=== PATIENT | male | born 1975 | race Caucasian/White ===

== ENCOUNTER 2017-07-14 17:18 | Emergency (ER) | payer BC, SELFPAY ==
[2017-07-14 17:55] VITALS: BP 125/87; PULSE 76; RESP 20; TEMP 36.9; O2SAT 99; BMI 29.7
[2017-07-14 18:07] LABS: UTC Influenza A Antigen Negative (Negative); UTC Influenza B Antigen Positive (Negative)
--- NOTE | 2017-07-14 18:25 | HMH.EDUTC ---
[facility] [place] Disposition Clinical Impression: Influenza Disposition: Home, Self-Care Condition on Discharge: Good Instructions: Influenza, Cough Additional Instructions: ? Start Tamiflu today if you are going to take it. Discussed risk and possible benefits. ? Lots of rest ? Increase Fluids water, Gatorade, powerade, pedialyte,if /toddler/child ? Alternate Tylenol and / or ibuprofen as discussed for fever, aches, chills x 24 hours without medication for symptoms ? Follow up IMMEDIATELY for new or worsening Symptoms OR no noticeable improvement over the next 48-72 hours, 911 for difficulty or breathing ? You or your child area contagious until no fever, aches, chills for 24 hours with medication for symptoms Prescriptions: Brompheniramine/Pseudoephed/Dm [Bromfed DM Cough Syrup 5mL] 10 ml PO Q4H PRN #250 syrup PRN Reason: Cough Oseltamivir Phosphate [Tamiflu 75mg Capsule] 75 mg PO BID #10 cap Time of Disposition: 18:29 Medical Decision Making Vital Signs: 07/14/17 17:55 Temperature 98.4 F Temperature Source Temporal Artery Scan Pulse Rate [Brachial] 76 Respiratory Rate 20 Blood Pressure [Left Arm] 125/87 Blood Pressure Mean [Left Arm] 99 Blood Pressure Source [Left Arm] Automatic Cuff Blood Pressure Position [Left Arm] Sitting 02 Sat by Pulse Oximetry 99 Oxygen Delivery Method Room Air - Lab Data Lab Results 07/14/17 18:07: Influenza Type A Ag Negative, Influenza Type B Ag Positive A - Eric Inquiry Pt receiving controlled substance: No Eric was queried for this patient: No [facility] [place] HPI - General Stated complaint: Cough, congestion, dizzy Mode of Arrival: Ambulatory Source of Information: Patient Limitations: No Limitations Description of Symptoms (Recalled from Triage Doc. 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 not sure if he may have it or not - Related Data Previous Rx's Medication Instructions Recorded Brompheniramine/Pseudoephed/Dm 10 ml PO Q4H PRN #250 syrup 07/14/17 [Bromfed DM Cough Syrup 5mL] Oseltamivir Phosphate [Tamiflu 75 mg PO BID #10 cap 07/14/17 75mg Capsule] Allergies Allergy/AdvReac Type Severity Reaction Status Date / Time No Known Allergies Allergy Verified 07/14/17 17:53 - Worker's Comp Is this a Worker's Comp case?: No [facility] History I have reviewed the patient's past medical history: Yes - *Social History Alcohol Intake: never - Psychiatric History Expresses thoughts of harming self/others: None Suicide Plan Description: No Plan ROS Obtained: Yes All systems reviewed & no additional complaints - Constitutional Constitutional: Reports body ache, Reports chills, Reports fatigue, Reports fever(s) - Respiratory Respiratory: Yes cough Physical Exam - General General appearance: alert, in no apparent distress - ENT ENT exam: Present: normal exam, normal oropharynx, mucous membranes moist, TM's normal bilaterally, normal external ear exam - Respiratory Respiratory exam: Present: normal lung sounds bilaterally. Absent: respiratory distress - Cardiovascular Cardiovascular exam: Present: regular rate, normal rhythm. Absent: JVD - Neurological Exam Neurological exam: Present: alert, oriented X3
--- NOTE | 2017-07-14 18:29 | ED_ITS ---
[facility] [place] Clinical Impression: Influenza Disposition: Home, Self-Care Condition on Discharge: Good Instructions: Influenza, Cough Additional Instructions: ? Start Tamiflu today if you are going to take it. Discussed risk and possible benefits. ? Lots of rest ? Increase Fluids water, Gatorade, powerade, pedialyte,if /toddler/child ? Alternate Tylenol and / or ibuprofen as discussed for fever, aches, chills x 24 hours without medication for symptoms ? Follow up IMMEDIATELY for new or worsening Symptoms OR no noticeable improvement over the next 48-72 hours, 911 for difficulty or breathing ? You or your child area contagious until no fever, aches, chills for 24 hours with medication for symptoms Prescriptions: Brompheniramine/Pseudoephed/Dm [Bromfed DM Cough Syrup 5mL] 10 ml PO Q4H PRN # 250 syrup PRN Reason: Cough Oseltamivir Phosphate [Tamiflu 75mg Capsule] 75 mg PO BID #10 cap Time of Disposition: 18:29 Medical Decision Making Vital Signs: 07/14/17 17:55 Temperature 98.4 F Temperature Source Temporal Artery Scan Pulse Rate [Brachial] 76 Respiratory Rate 20 Blood Pressure [Left Arm] 125/87 Blood Pressure Mean [Left Arm] 99 Blood Pressure Source [Left Arm] Automatic Cuff Blood Pressure Position [Left Arm] Sitting 02 Sat by Pulse Oximetry 99 Oxygen Delivery Method Room Air - Lab Data Lab Results 07/14/17 18:07: Influenza Type A Ag Negative, Influenza Type B Ag Positive A - Eric Inquiry Pt receiving controlled substance: No Eric was queried for this patient: No [facility] [place] - General Stated complaint: Cough, congestion, dizzy Mode of Arrival: Ambulatory Source of Information: Patient Limitations: No Limitations Description of Symptoms (Recalled from Triage Doc. 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 not sure if he may have it or not - Related Data Previous Rx's Medication Instructions Recorded Brompheniramine/Pseudoephed/Dm 10 ml PO Q4H PRN #250 syrup 07/14/17 [Bromfed DM Cough Syrup 5mL] Oseltamivir Phosphate [Tamiflu 75 mg PO BID #10 cap 07/14/17 75mg Capsule] Allergies Allergy/AdvReac Type Severity Reaction Status Date / Time No Known Allergies Allergy Verified 07/14/17 17:53 - Worker's Comp Is this a Worker's Comp case?: No [facility] History I have reviewed the patient's past medical history: Yes - *Social History Alcohol Intake: never - Psychiatric History Expresses thoughts of harming self/others: None Suicide Plan Description: No Plan ROS Obtained: Yes All systems reviewed & no additional complaints - Constitutional Constitutional: Reports body ache, Reports chills, Reports fatigue, Reports fever(s) - Respiratory Respiratory: Yes cough Physical Exam - General General appearance: alert, in no apparent distress - ENT
== END 2017-07-14 18:39 | disposition home or self-care (01) ==
PROVIDERS: Emergency Provider Nurse Practitioner; Family Provider Family Medicine
DX: J11.1 Influenza due to unidentified influenza virus with other respiratory manifestations (principal)
CPT/HCPCS: 87804; 99202

== ENCOUNTER 2021-09-14 11:53 | Emergency (ER) | payer BC, SELFPAY ==
[2021-09-14 13:53] VITALS: BP 0/0; PULSE 0; RESP 0; TEMP -17.7; TEMP 0
== END 2021-09-14 13:54 | disposition left against medical advice (07) ==
LOC: UTC 11:55
PROVIDERS: Emergency Provider Nurse Practitioner Family; PCP Family Medicine
DX: Z53.21 Procedure and treatment not carried out due to patient leaving prior to being seen by health care provider (principal)

== ENCOUNTER → 2021-09-29 08:51 | Outpatient (POV) | payer BC, SELFPAY | PROVIDERS: Visit Provider Dermatology | DX: Z00.00 Encounter for general adult medical examination without abnormal findings (principal) ==

== ENCOUNTER → 2021-11-23 11:40 | Outpatient (CLI) | payer BC, SELFPAY ==
--- NOTE | 2021-11-23 11:50 | XR_ITS ---
FINAL REPORT CLINICAL HISTORY: injury to right index finger FINDINGS: AP, oblique and lateral views of the right index finger were obtained. There is no prior exam for comparison. There is an intra-articular fracture at the ulnar side of the base of the distal phalanx of the right 2nd finger which is minimally displaced. Note is made of soft tissue edema. IMPRESSION: Minimally displaced, intra-articular fracture as detailed above. Reviewed, Interpreted and Dictated by Halle Ball MD Transcribed by Maia Giles Authenticated by Halle Ball MD on 11/24/2021 11:48:56 AM [facility]
== END ==
PROVIDERS: PCP Family Medicine; Visit Provider Nurse Practitioner Family
DX: S69.91XA Unspecified injury of right wrist, hand and finger(s), initial encounter (principal)
CPT/HCPCS: 73140

== ENCOUNTER 2022-06-25 12:29 | Emergency (ER) | payer BC, SELFPAY ==
[2022-06-25 12:35] VITALS: BP 140/88; PULSE 66; RESP 20; TEMP 36.8; O2SAT 97; BMI 31.8
--- NOTE | 2022-06-25 12:59 | EXP.UTC ---
Discharge Plan Disposition Patient Disposition: Home, Self-Care Condition: Good Prescriptions Prescriptions: New methylprednisolone [Medrol (Fer)] 4 mg tablets,dose pack See Rx Instructions .Route .COMPLEX 6 Days Qty: 21 0RF Rx Instructions: taper pack; guaifenesin [Mucinex] 600 mg tablet extended release 12hr 600 mg PO BID PRN (Reason: cough) Qty: 20 0RF azithromycin [Zithromax Z-Fer] 250 mg tablet See Rx Instructions .ROUTE .COMPLEX 5 Days Qty: 6 0RF Rx Instructions: For 250 mg dose pack: take 500 mg today (day 1), then 250 mg for 4 days (days 2-5) Referrals Follow up/Referrals: Smita Lam APRN [Primary Care Provider] - See instructions Activity Restrictions/Add. Instructions Additional Instructions/Restrictions: *Monitor Temp, Over the counter Motrin or Tylenol as directed/as needed Tylenol every 4 hours and Motrin every 6 hours (as long as your family doctor has told you that you can take it) for fever or pain. and straight to ER if unable to lower temp less than 101.0 after medication given *Warm salt water gargles may help to soothe the throat *Throat Lozenges? *Warm fluids like tea with honey may help to soothe the throat? *Sleep elevated *Humidifier/Vaporizer *Flonase 2 sprays in each nostril daily but be aware that it may take 2-3 days before you notice improvement *Bromfed may cause drowsiness. Know how it effects you (your child) before driving, caring for small child, or sending your child to school. Not other antihistamines/allergy medications while taking bromfed Your throat swab was sent for culture. Those results are typically sent to your primary care. Be sure to follow up in 2-3 days with your family doctor/primary care physician if no improvement so they can review those result and treat if necessary. If you don?t have a primary care doctor, I recommend you get one but in the mean time, you will have to return to a walk in clinic Follow up IMMEDIATELY for new or worsening symptoms or no Noticeable improvement over the next 48-72 hours. 911 for difficulty breathing or swallowing Clinical Impressions Clinical Impression: Sinusitis, Bronchitis Instructions Patient Instructions: DI for Sinusitis, Sinusitis, Acute Bronchitis Discharge ED Provider: Rupa Sanchez [facility] [place] HPI General Stated complaint: congestion, sinus pressure, soa Mode of Arrival: Ambulatory Source of Information: Patient Limitations: No Limitations Time Seen by Provider: 06/25/22 12:59 Description of Symptoms (Recalled from Triage Doc. by RN): PATIENT C/O CONGESTION X 2 DAYS HEENT Symptoms (Recalled from RN notes): Yes Resp Symptoms (Recalled from RN notes): No Skin Symptoms (Recalled from RN notes): No MS Symptoms (Recalled from RN notes): No Functional Status (Recalled from RN notes): WNL History of Present Illness Provider Complaint: Patient states that he has been having sinus congestion and pressure and feeling like it is moving into his chest States that he hasnt been coughing anything up but felt like he had congestion in his chest at times and felt a little SOA at times Related Data Previous Rx's Medication Instructions Recorded azithromycin 250 mg tablet See Rx Instructions PO .COMPLEX 5 06/25/22 (Zithromax Z-Fer) days #6 tabs guaifenesin 600 mg tablet, 600 mg PO BID PRN cough #20 tabs 06/25/22 extended release 12 hr (Mucinex) methylprednisolone 4 mg tablets in See Rx Instructions .Route 06/25/22 a dose pack (Medrol (Fer)) .COMPLEX 6 days #21 tabs Allergies Allergy/AdvReac Type Severity Reaction Status Date / Time No Known Allergies Allergy Verified 06/06/18 16:21 Worker's Comp Is this a Worker's Comp case?: No [facility] Disclaimer: The information contained in this section may have been updated after the patient was seen, as this information can be updated by other users. Medical History (Updated 06/25/22 @ 13:03 by Rupa Sanchez APRN) No
[2022-06-25 13:04] VITALS: BP 140/88; PULSE 66; RESP 20; TEMP 36.8; O2SAT 97
== END 2022-06-25 13:27 | disposition home or self-care (01) ==
PROVIDERS: Emergency Provider Nurse Practitioner; PCP Nurse Practitioner Family
DX: J40 Bronchitis, not specified as acute or chronic (principal); J32.9 Chronic sinusitis, unspecified
CPT/HCPCS: 99212; G0463